=== PATIENT | female | born 1930 | race Caucasian/White ===

== ENCOUNTER 2017-11-24 17:01 | Observation (INO) | payer BC ==
[~2017-11-24] VITALS: Ht 167.6 cm; Wt 61.9 kg
[2017-11-24 17:58] LABS: BASOPHIL (%) 0.7 % (0-1); EOSINOPHIL (%) 5.2 % (0-5); EOSINOPHIL COUNT 0.2 K/uL (0-0.3); HEMATOCRIT 32.6 % (36.0-46.0); HEMOGLOBIN 10.9 G/DL (11.9-15.5); IMMATURE GRANULOCYTE (%) 0.2 % (0.0-0.7); LYMPHOCYTE (%) 24.2 % (15-42); MCH 31.2 PG (29.0-34.0); MCHC 33.4 G/DL (30.0-36.0); MCV 93.4 FL (83-99); MONOCYTE (%) 13.6 % (3-12); MONOCYTE COUNT 0.6 K/uL (0-0.8); NEUTROPHIL (%) 56.1 % (45-76); NEUTROPHIL COUNT 2.4 K/uL (1.8-6.4); PLATELET COUNT 120 K/uL (156-360); RBC DIS.WIDTH-CV 13.6 % (11.8-14.6); RBC DIS.WIDTH-SD 46.3 % (39-53); RED BLOOD COUNT 3.49 M/uL (3.80-5.20); WHITE BLOOD COUNT 4.3 K/uL (4.1-10.2)
[2017-11-24 18:11] LABS: ALBUMIN 3.9 g/dL (3.2-4.8); CHLORIDE 103 mEq/L (99-109); MAGNESIUM 2.2 mg/dL (1.3-2.7); POTASSIUM 4.1 mEq/L (3.7-5.4); SODIUM 135 mEq/L (136-147)
[2017-11-24 18:13] LABS: GLUCOSE 69 mg/dL (70-99); TOTAL PROTEIN 6.7 g/dL (6.4-8.3)
[2017-11-24 18:15] LABS: TOTAL BILIRUBIN 0.4 mg/dL (0.0-1.0)
[2017-11-24 18:17] LABS: ALKALINE PHOSPHATASE 93 IU/L (3-129); CREATININE 1.2 mg/dL (0.6-1.3); GFR ESTIMATE (CALCULATED) 45 mL/min/
[2017-11-24 18:18] LABS: UREA NITROGEN (BUN) 59 mg/dL (9-23)
[2017-11-24 18:19] LABS: AST (GOT) 25 IU/L (2-34)
[2017-11-24] MEDS ORDERED: SYNTHROID25 MCG PO (18:19)
[2017-11-24] MEDS ORDERED: OSTEO BI-FLEX1 EAC2 PO (18:19)
[2017-11-24 18:20] LABS: ALT (GPT) 12 IU/L (3-49)
[2017-11-24] MEDS ORDERED: FISH OIL EC 1,1 EAC1 PO (18:20)
[2017-11-24] MEDS ORDERED: ALDACTONE25 MG PO (18:20)
[2017-11-24] MEDS ORDERED: ACIDOPHILUS1 EAC3 PO (18:20)
[2017-11-24] MEDS ORDERED: HYZAAR 100-11 TABLET PO (18:21)
[2017-11-24] MEDS ORDERED: PRAVACHOL40 MG PO (18:21)
[2017-11-24] MEDS ORDERED: CO Q-10100 MG PO (18:21)
[2017-11-24] MEDS ORDERED: LO-DOSE ASPIRIN81 M2 PO (18:22)
[2017-11-24] MEDS ORDERED: BUMEX1 MG PO (18:22)
[2017-11-24] MEDS ORDERED: NEURONTIN600 MG PO (18:22)
[2017-11-24] MEDS ORDERED: ONCE DAILY1 EACH PO (18:22)
[2017-11-24] MEDS ORDERED: ACETAMINOPHEN1 EAC2 PO (18:24)
[2017-11-24 18:41] LABS: TROP-I INTERPRETATION NEGATIVE; TROPONIN-I 0.02 ng/mL (0.0-0.30)
[2017-11-24 21:04] LABS: HDL CHOLESTEROL 41 MG/DL (Desirable>=50); LDL CHOLESTEROL 60 mg/dL (Desirable<100); NON-HDL CHOLESTEROL 75 mg/dL (Desirable<160); TOTAL CHOLESTEROL 116 mg/dL (Desirable<200); TRIGLYCERIDES 74 MG/DL (Normal: <150)
[2017-11-24 21:17] LABS: THYROTROPIN (TSH) 2.4 MIU/L (0.4-5.5)
[2017-11-24 22:07] VITALS: BP 129/71
[2017-11-25 04:10] VITALS: BP 110/53
[2017-11-25 08:21] VITALS: BP 115/55
[2017-11-25 09:36] LABS: HEMOGLOBIN A1c (GLYCOHEMOGLOB) 5.7 % (Below 5.7)
[2017-11-25 11:22] VITALS: BP 120/56
== END 2017-11-25 15:38 | disposition home or self-care (01) ==
LOC: EME 17:01 → EDOF 19:56 → 4SOUTH 19:56 → EDOF 19:56 → ENRESERV 20:00 → 4SOUTH 21:46 → ENPENDDIS 11-25 → 4SOUTH 11-25 15:38
PROVIDERS: Emergency Medicine; Physician Assistant
DX: G45.9 Transient cerebral ischemic attack, unspecified (principal); I48.91 Unspecified atrial fibrillation; I69.398 Other sequelae of cerebral infarction; I10 Essential (primary) hypertension; E78.5 Hyperlipidemia, unspecified; E03.9 Hypothyroidism, unspecified; G62.9 Polyneuropathy, unspecified; Z66 Do not resuscitate; Z87.891 Personal history of nicotine dependence; Z92.3 Personal history of irradiation; Z80.41 Family history of malignant neoplasm of ovary; Z79.82 Long term (current) use of aspirin; Z88.5 Allergy status to narcotic agent; Z88.8 Allergy status to other drugs, medicaments and biological substances
CPT/HCPCS: 70450; 70551; 71045; 80053; 80061; 83036; 83605; 83735; 84443; 84484; 85025; 93005; 93880; 99281; 99285; G0378; J1644